=== PATIENT | female | born 1995 | race Caucasian/White ===

== ENCOUNTER 2020-04-11 07:39 | Inpatient (IN) | payer MEDICAID ==
[2020-04-11] MEDS ORDERED: Oxytocin/Normal Saline 30 UNIT/500 ML BAG IV ONE (07:40)
[2020-04-11] MEDS ORDERED: Citric Acid/Sodium Citrate Solution 30 ML Cup PO PRN (09:15)
[2020-04-11] MEDS ORDERED: Sodium Chloride 0.9% 10 ML Syringe FLUSH PRN (10:04)
[2020-04-11] MEDS ORDERED: Tranexamic Acid 1,000 MG in Sodium Chloride 0.9% 100 ML IV PRN (10:04)
[2020-04-11] MEDS ORDERED: Oxytocin/Normal Saline 30 UNIT/500 ML BAG IV SCH (10:15)
[2020-04-11] MEDS ORDERED: Oxytocin/Normal Saline 60 UNIT/1,000 ML BAG ONE (10:26)
[2020-04-11] MEDS ORDERED: ceFAZolin 2 GM in Premix Bag 1 BAG IV ONE (11:00)
[2020-04-11] MEDS: Lactated Ringers 1,000 ML IV SCH ×4 (11:03→23:56)
[2020-04-11] MEDS ORDERED: Lactated Ringers 1,000 ML IV ONE (13:07)
[2020-04-11] MEDS ORDERED: Morphine PF 1 MG/ML Amp IVPUSH ONE (13:07)
[2020-04-11] MEDS ORDERED: Ketorolac 30 MG/ML SDV IVPUSH ONE (13:07)
[2020-04-11] MEDS ORDERED: Methylergonovine 0.2 MG/1 ML Amp IM PRN (13:39)
[2020-04-11] MEDS ORDERED: Ondansetron 4 MG/2 ML SDV IVPUSH PRN (13:39)
[2020-04-11] MEDS ORDERED: diphenhydrAMINE 50 MG/ML SDV IVPUSH PRN (13:39)
[2020-04-11] MEDS ORDERED: Acetaminophen 325 MG Tab PO PRN (13:39)
[2020-04-11] MEDS ORDERED: Misoprostol 400 MCG (4 X 100 MCG TAB) RECTAL PRN (13:39)
[2020-04-11] MEDS ORDERED: ePHEDrine 50 MG/ML SDV IVPUSH PRN (13:39)
[2020-04-11] MEDS ORDERED: Naloxone 2 MG/2 ML Syringe IVPUSH PRN (13:39)
[2020-04-11] MEDS ORDERED: Carboprost Tromethamine 250 MCG/1 ML Amp IM PRN (13:39)
[2020-04-11] MEDS ORDERED: Lactated Ringers 1,000 ML IV SCH (13:45)
--- NOTE | 2020-04-11 15:12 | PCM.PRNOTE ---
- Free Text/Narrative Note: Section Operative Report Date of Surgery: Surgeon: Bharati Zamudio MD Top Ironer: Pre-Operative Diagnosis: Post-Operative Diagnosis: Same Procedure Performed: low transverse section Anesthesia: Spinal EBL: mL IVF: mL Drains: Rios catheter with mL of urine output Specimens: Complications: None apparent Findings: uterus, tubes, and ovaries. Indication and Consent: The patient presented to floor today for scheduled at term due to hx of prior and desire for elective repeat . The patient understood that the risks of section include, but are not limited to, visceral or vascular injury, infection, blood loss and need for blood transfusion, prolonged hospitalization, and reoperation. The patient again stated understanding and desired to proceed. All questions were answered. Procedure in Detail: The patient was taken to the operating room where spinal anesthesia was placed and found to be adequate. grams of cefazolin (Ancef) were given for infection prophylaxis. She was then prepped and draped in routine fashion in dorsal supine position with a left hunt tilt. Rios catheter and pneumoboots were placed. A Pfannenstiel skin incision was made with a scalpel. The incision was carried down to the fascia sharply. The fascia was incised and extended laterally. The inferior aspect of the fascia was grasped with Miguel Angel clamps; the underlying rectus muscle and pyramidalis was dissected off with sharp and blunt technique. In a similar fashion, the superior aspect of the fascia was elevated with Miguel Angel clamps and the rectus muscle was dissected off. Hemostasis was achieved with the Bovie. The rectus musculature was in the midline down to the level of the pubic symphysis. Pre-peritoneal fatty tissue was bluntly dissected to expose the peritoneum. The peritoneum was found to be free of adherent bowel or bladder tissue and entered bluntly. The peritoneal opening was then extended superiorly and inferiorly to the bladder reflection with good visualization of the bladder. The Troy retractor was inserted. Intraabdominal survey revealed scant, clear peritoneal fluid and thinned-out lower uterine segment. The vesicouterine peritoneum was opened with a pickup and mets, and the bladder flap was developed. The bladder blade was repositioned to keep the bladder out of the operative field. The lower uterine segment was incised with a scalpel. The amniotic sac was ruptured with an Allis clamp and clear fluid was noted. The uterine incision was extended bluntly with lateral and upward traction. The fetus was in cephalic position. The head was elevated out of the maternal pelvis with special attention paid to avoid using the uterine incision as a fulcrum. Gentle fundal pressure was applied once the head was brought into the incision. The was delivered with minimal difficulty. Bulb suctioning of the 's nose and mouth was performed on the operative field. Cord blood was collected.The cord was clamped and cut in standard fashion, and the infant was handed over to the awaiting nursery staff. IV oxytocin was initiated to facilitate uterine contractions. The placenta was delivered intact with manual message of the uterine fundus along with gentle cord traction. The uterus was then exteriorized. The inside of the uterus was gently wiped with a lap sponge to assure complete removal of remaining products of conception. The uterine incision was closed with 0 - Vicryl suture in a running locked fashion. A second imbricating layer of 0- Monocryl was also placed. The incision was inspected and hemostasis was achieved. The ovaries and tubes were visualized and found to be normal. The uterus, tubes, and ovaries were returned to the abdominal cavity. The blood clots and fluid were wiped out of the abdomen and pelvis with moist laparotomy sponges. The uterine incision was re-inspected along with all other incised surfaces and good hemostasis was confirmed. The Troy retractor was removed. The fascia was then closed with 2-0 looped PDS suture with care not to include any underlying abdominal contents. The sub-cutaneous layer Was reapproximated with suture. The skin was closed with 4-0 Monocryl suture on a Osmar needle in a subcuticular fashion. Sponge and instrument counts were reported as correct times two. Pt tolerated procedure well and was taken to PACU in stable condition. Bharati Zamudio MD
[2020-04-11] MEDS: Simethicone 80 MG Tab.Chew PO SCH ×2 (17:00→22:15)
[2020-04-11] MEDS: Ketorolac 30 MG/ML SDV IVPUSH SCH ×2 (18:33→23:56)
[2020-04-12] MEDS: Ketorolac 30 MG/ML SDV IVPUSH SCH (05:48)
[2020-04-12] MEDS: Simethicone 80 MG Tab.Chew PO SCH ×4 (09:06→22:02)
[2020-04-12] MEDS: Docusate Sodium 100 MG Cap PO PRN ×2 (09:06→22:02)
[2020-04-12] MEDS: Prenatal Multivitamin with Calcium/Folic Acid/Iron Tab PO SCH (09:06)
[2020-04-12] MEDS: Acetaminophen/oxyCODONE 325-5 MG Tab PO PRN ×4 (09:07→22:02)
--- NOTE | 2020-04-12 13:03 | PN ---
DATE: 04/12/2020 LOCATION: [facility]. SUBJECTIVE: The patient is postoperative day 1 from a repeat . Mom and baby are both doing well. She is already working on ambulating, voiding, and has already taken 1 p.o. Percocet. PHYSICAL EXAMINATION: Vital Signs: The patient is afebrile. Heart rate 67 to 94, blood pressure 97 to 123 systolic over 40 to 67 diastolic, respiratory rate 16 to 18, and O2 sats 99%. The dressing is on and dry. Fundus is firm below the umbilicus. Extremities: Has no tenderness, no edema. The patient is COVID negative. She did have a preoperative hemoglobin which was 12.7. CBC this morning shows a white count of 10.2, hemoglobin 10.7, and platelets 208. She is A positive and rubella immune. ASSESSMENT AND PLAN: Postoperative day #1 status post repeat . Mom and baby are both doing well. We will continue postoperative care. [facility] /[id number]
[2020-04-12] MEDS: Ibuprofen 800 MG Tab PO PRN ×2 (14:14→22:03)
[2020-04-13] MEDS: Acetaminophen/oxyCODONE 325-5 MG Tab PO PRN ×3 (05:35→14:03)
[2020-04-13] MEDS: Ibuprofen 800 MG Tab PO PRN ×2 (05:36→14:05)
[2020-04-13] MEDS: Prenatal Multivitamin with Calcium/Folic Acid/Iron Tab PO SCH (08:41)
[2020-04-13] MEDS: Simethicone 80 MG Tab.Chew PO SCH ×2 (08:41→14:03)
[2020-04-13] MEDS: Docusate Sodium 100 MG Cap PO PRN (08:41)
--- NOTE | 2020-04-13 12:25 | PN ---
DATE: 04/13/2020 LOCATION: [facility]. SUBJECTIVE: The patient is postoperative day 2, status post repeat . Mom and baby are both doing well. She is tolerating p.o., ambulating, and voiding. Good pain control on Percocet. PHYSICAL EXAMINATION: Vital Signs: She has remained afebrile, heart rate 79 to 93, blood pressure 101 to 122 systolic over 59 to 74 diastolic, respiratory rate 16 to 18, and O2 saturation 99% to 100% on room air. Abdomen: Benign. The dressing has been removed. Dressing is clean, dry, and intact. Fundus is firm, below the umbilicus. Extremities: Have no tenderness, no edema. DATA: She is COVID negative. Blood type is A-positive. She is rubella immune. Hemoglobin prior to was 12.7 and postoperative hemoglobin was 10.7. ASSESSMENT AND PLAN: Postoperative day #2, status post repeat section. Mom and baby are both doing well. We will discharge her to home with an incision check in 2 weeks, visit in 6 weeks, and I did give her 20 Percocet. [facility] /[id number]
== END 2020-04-13 15:15 | disposition home or self-care (01) | DRG 787 ==
LOC: DL.OB 07:39 → OBSVTOIN 12:25 → DL.MS 13:01
PROVIDERS: ADMIT Family Medicine; ATTEND Family Medicine
PROC: 10D00Z1 Extraction of Products of Conception, Low, Open Approach (ICD-10-PCS; principal; 2020-04-11)
DX: O34.211 Maternal care for low transverse scar from previous cesarean delivery (principal); O98.32 Other infections with a predominantly sexual mode of transmission complicating childbirth; A60.00 Herpesviral infection of urogenital system, unspecified; O99.02 Anemia complicating childbirth; O99.824 Streptococcus B carrier state complicating childbirth; D64.9 Anemia, unspecified; Z20.828 Contact with and (suspected) exposure to other viral communicable diseases; Z87.891 Personal history of nicotine dependence; Z37.0 Single live birth; Z3A.37 37 weeks gestation of pregnancy
CPT/HCPCS: 01961; 36415; 51702; 59025; 59409; 85025; 85027; 86850; 86900; 86901; 94010; A9270-GY; J0690; J1885; J2274; J2405; J2590; J7120; U0002

== ENCOUNTER 2022-08-31 09:35 | Inpatient (IN) | payer MEDICAID ==
[2022-08-31] MEDS ORDERED: Famotidine 20 MG/2 ML SDV ONE (09:56)
[2022-08-31] MEDS ORDERED: Methylergonovine 0.2 MG/1 ML Amp ONE (09:56)
[2022-08-31] MEDS ORDERED: Oxytocin/Normal Saline 30 UNIT/500 ML BAG ONE ×2 (10:06→12:03)
[2022-08-31] MEDS ORDERED: Carboprost Tromethamine 250 MCG/1 ML Amp IM PRN (10:09)
[2022-08-31] MEDS ORDERED: Sodium Chloride 0.9% 10 ML Syringe FLUSH PRN (10:09)
[2022-08-31] MEDS ORDERED: Methylergonovine 0.2 MG Tab PO PRN (10:09)
[2022-08-31] MEDS ORDERED: Misoprostol 400 MCG (4 X 100 MCG TAB) RECTAL ONE (10:09)
[2022-08-31] MEDS ORDERED: Oxytocin 10 Units/1 ML SDV IM PRN (10:09)
[2022-08-31] MEDS ORDERED: Citric Acid/Sodium Citrate Solution 30 ML Cup PO ONE (10:09)
[2022-08-31] MEDS ORDERED: Tranexamic Acid 1,000 MG in Sodium Chloride 0.9% 100 ML IV PRN (10:09)
[2022-08-31] MEDS ORDERED: ceFAZolin 2 GM Vial IVPUSH ONE (10:09)
[2022-08-31] MEDS ORDERED: Lactated Ringers 1,000 ML IV SCH ×2 (10:15→14:00)
[2022-08-31] MEDS ORDERED: Oxytocin/Normal Saline 30 UNIT/500 ML BAG IV SCH (10:15)
[2022-08-31] MEDS ORDERED: Ropivacaine 0.5% 5 MG/ML 30 ML SDV NERVRT ONE (10:29)
[2022-08-31] MEDS ORDERED: Famotidine 20 MG/2 ML SDV IV ONE (10:37)
[2022-08-31] MEDS ORDERED: Oxytocin/Normal Saline 30 UNIT/500 ML BAG IV ONE (10:37)
[2022-08-31] MEDS ORDERED: fentaNYL 100 MCG/2 ML SDV IV ONE (10:37)
[2022-08-31] MEDS ORDERED: Ondansetron 4 MG/2 ML SDV IV ONE (10:37)
[2022-08-31] MEDS: Lactated Ringers 1,000 ML IV SCH ×2 (11:05→16:00)
[2022-08-31] MEDS ORDERED: ceFAZolin 2 GM Vial ONE (12:03)
[2022-08-31] MEDS ORDERED: Ondansetron 4 MG/2 ML SDV IVPUSH PRN (13:47)
[2022-08-31] MEDS ORDERED: diphenhydrAMINE 50 MG/ML SDV IVPUSH PRN (13:47)
[2022-08-31] MEDS ORDERED: ePHEDrine 50 MG/ML SDV IVPUSH PRN (13:47)
[2022-08-31] MEDS ORDERED: Naloxone 2 MG/2 ML Syringe IVPUSH PRN (13:47)
[2022-08-31] MEDS ORDERED: Acetaminophen 325 MG Tab PO PRN (13:47)
[2022-08-31] MEDS ORDERED: Ketorolac 30 MG/ML SDV IVPUSH ONE (15:45)
[2022-08-31] MEDS: Simethicone 80 MG Tab.Chew PO SCH ×2 (16:26→21:54)
[2022-08-31] MEDS: Ketorolac 30 MG/ML SDV IVPUSH SCH (21:52)
[2022-08-31] MEDS: Docusate Sodium 100 MG Cap PO PRN (21:53)
[2022-08-31] MEDS: Sodium Chloride 0.9% 10 ML Syringe FLUSH SCH ×2 (21:54→21:59)
[2022-09-01] MEDS: Acetaminophen/oxyCODONE 325-5 MG Tab PO PRN ×4 (00:19→22:11)
[2022-09-01] MEDS: Lactated Ringers 1,000 ML IV SCH (01:30)
[2022-09-01] MEDS: Ketorolac 30 MG/ML SDV IVPUSH SCH ×2 (05:32→09:45)
[2022-09-01] MEDS: Sodium Chloride 0.9% 10 ML Syringe FLUSH SCH (09:40)
[2022-09-01] MEDS: Prenatal Multivitamin with Calcium/Folic Acid/Iron Tab PO SCH (09:42)
[2022-09-01] MEDS: Docusate Sodium 100 MG Cap PO PRN ×2 (09:43→22:12)
[2022-09-01] MEDS: Simethicone 80 MG Tab.Chew PO SCH ×4 (09:43→22:12)
[2022-09-01] MEDS: Ibuprofen 800 MG Tab PO PRN (22:11)
[2022-09-02] MEDS: Docusate Sodium 100 MG Cap PO PRN (08:15)
[2022-09-02] MEDS: Simethicone 80 MG Tab.Chew PO SCH ×4 (08:15→20:53)
[2022-09-02] MEDS: Ibuprofen 800 MG Tab PO PRN ×2 (08:15→15:25)
[2022-09-02] MEDS: Prenatal Multivitamin with Calcium/Folic Acid/Iron Tab PO SCH (08:16)
[2022-09-02] MEDS: Acetaminophen/oxyCODONE 325-5 MG Tab PO PRN ×3 (09:11→22:00)
[2022-09-03] MEDS: Ibuprofen 800 MG Tab PO PRN ×2 (00:25→09:04)
[2022-09-03] MEDS: Docusate Sodium 100 MG Cap PO PRN (09:04)
[2022-09-03] MEDS: Prenatal Multivitamin with Calcium/Folic Acid/Iron Tab PO SCH (09:04)
[2022-09-03] MEDS: Acetaminophen/oxyCODONE 325-5 MG Tab PO PRN (09:05)
[2022-09-03] MEDS: Simethicone 80 MG Tab.Chew PO SCH (10:11)
== END 2022-09-03 10:30 | disposition home or self-care (01) | DRG 787 ==
LOC: DL.OB 09:35 → OBSVTOIN 12:26 → DL.OB 12:26
PROVIDERS: ADMIT Family Medicine; ATTEND Family Medicine
PROC: 10D00Z1 Extraction of Products of Conception, Low, Open Approach (ICD-10-PCS; principal; 2022-08-31)
DX: O34.211 Maternal care for low transverse scar from previous cesarean delivery (principal); O98.32 Other infections with a predominantly sexual mode of transmission complicating childbirth; Z37.0 Single live birth; A60.09 Herpesviral infection of other urogenital tract; O99.214 Obesity complicating childbirth; O99.02 Anemia complicating childbirth; D64.9 Anemia, unspecified; Z3A.39 39 weeks gestation of pregnancy
CPT/HCPCS: 01961; 36415; 59025; 85025; 85027; 86592; 86850; 86900; 86901; 86920; 86922; A9270-GY; J0690; J1885; J2405; J2590; J2795; J3010; J3490; J7120